=== PATIENT | male | born 1950 | race Caucasian/White ===

== ENCOUNTER 2020-12-10 16:01 | Emergency (ER) | payer MEDICARE, SELFPAY ==
[2020-12-10 16:05] VITALS: BP 122/68; PULSE 76; RESP 16; TEMP 37.5; O2SAT 97
--- NOTE | 2020-12-10 16:25 | ED.GENADUL_ITS ---
Discharge Plan Disposition Patient Disposition: HOME Condition: Stable Discharge Details Clinical Impression: Tick bite of back Primary Care Provider: Salvador Jarrett ED Provider: Selene Paz Home Meds and New Rx's Prescriptions: Continued lisinopril 10 MG tablet 1 tab PO DAILY RF: 0 naproxen 500 MG tablet 500 mg PO BID RF: 0 glipizide 10 MG tablet 20 mg PO BID RF: 0 omeprazole 20 MG capsule,delayed release(DR/EC) 20 mg PO HS RF: 0 simvastatin 80 MG tablet 0.5 tab PO HS RF: 0 No Action trazodone 150 MG tablet 150 mg PO HS RF: 0 metformin 1,000 MG tablet extended release 24hr 1,000 mg PO BID RF: 0 terazosin 5 MG capsule 5 mg PO HS RF: 0 fexofenadine 60 MG tablet 60 mg PO DAILY RF: 0 cephalexin 500 MG capsule 500 mg PO Q6H Qty: 16 RF: 0 Discharge Instructions Instructions: Tick Bite (ED) Additional Instructions: Follow up with primary care provider in 3-5 days if needed, please return or be seen for additional antibiotic treatment if nausea, headaches, body aches, wors ening rash or any concerns.. Return to ED sooner if any worsening or concerns. Increase oral fluids. Please take Tylenol or Ibuprofen with food every 4-6 hours as needed for pain and swelling. You were given doxycycline 200 mg here in the department which is a antibiotic and preventative for Lyme disease. Referrals: Salvador Jarrett [Primary Care Provider] - Discharge Data Discharge Date/Time-TO BE ENTERED AT DEPARTURE: 12/10/20 17:03 Medical Decision Making 62-year-old male with a past medical history of type 2 diabetes, hypercholesterol, presents to the ER with chief complaint of tick bite. Patient pulled and engorged tick off his left upper back today. He reports that tick may have been on him since Thursday. Does have red raised area where the tick was attached bleeding is controlled upon arrival. No other complaints or associated symptoms at this time. We will give him 200 mg doxycycline p.o. and perform wound care. Discuss strict return instructions or follow-up with PCP if additional symptoms occur, verbalized understanding. Wound care performed and patient given 200 mg doxycycline p.o. here in department. Instructed on strict follow-up if additional symptoms occur. Patient did bring take in with him however it is engorged and difficult to identify. This suspected that this is a dog tick however, we will treat empirically with 200 mg doxycycline. Tick was disposed of by staff training and development manager. Discussed strict return instructions and when to follow-up patient verbalized understanding. This text was generated using Hive7ation system, please disregard any oddities of phrase or misspellings. HPI General Mode of arrival: ambulatory . Date/Time Provider Initiated Documentation: 12/10/20 16:24 . Limitations to Documentation: no limitations . Information obtained by: patient . HPI Narrative: 62-year-old male with a past medical history of type 2 diabetes, hypercholesterol, presents to the ER with chief complaint of tick bite. Patient pulled and engorged tick off his left upper back today. He reports that tick may have been on him since Thursday. Does have red raised area where the tick was attached bleeding is controlled upon arrival. No other complaints or associated symptoms at this time. We will give him 200 mg doxycycline p.o. and perform wound care. Discuss strict return instructions or follow-up with PCP if additional symptoms occur, verbalized understanding. Related Data Home Medications Medication Instructions Recorded Confirmed metformin 1,000 mg PO BID 08/10/12 09/07/14 omeprazole 20 mg PO HS 08/10/12 09/07/14 simvastatin 0.5 tab PO HS 08/10/12 12/10/20 terazosin 5 mg PO HS 08/10/12 09/07/14 fexofenadine 60 mg PO DAILY 05/25/13 09/07/14 lisinopril 1 tab PO DAILY tab-cap 05/31/13 09/07/14 naproxen 500 mg PO BID tab-cap 05/31/13 09/07/14 glipizide 20 mg PO BID tab-cap 01/14/16 trazodone 150 mg PO HS tab-cap 01/14/16 12/10/20 cephalexin 500 mg PO Q6H #16 cap 05/05/17 Previous Rx's Medication Instructions Recorded cephalexin 500 mg PO Q6H #16 cap 05/05/17 Allergies Allergy/AdvReac Type Severity Reaction Status Date / Time No Known Allergies Allergy Unverified 12/10/20 16:10 General Stated Complaint: RashLesion ESTHER: 4 Review of Systems All systems reviewed & are unremarkable except as noted in HPI and below Integumentary/Breasts Skin/Breast: Reports as per HPI, Reports rash (Slightly raised erythemic area measuring approximately half centimeter) and Reports wounds (Tick bite left upper back) [facility] Social History Smoking/Tobacco Use Status: Former Tobacco Use Smoking risk assessment performed?: Yes Alcohol Intake: former Drug use: Never Do you feel safe at home: Yes Do you feel safe in your relationship?: Yes Exam Const General: cooperative, healthy appearing, comfortable, well developed and well groomed Nutritional Appearance: average body habitus Orientation: alert, awake and oriented x3 Skin General skin exam: elasticity normal and turgor normal Trauma: puncture (Left upper back tick bite with surrounding red raised area) Course Vital Signs Vital signs: Vital Signs Temperature 37.5 C 12/10/20 16:05 Pulse 76 12/10/20 16:05 Respiratory Rate 16 12/10/20 16:05 Blood Pressure 122/68 12/10/20 16:05 Pulse Oximetry 97 12/10/20 16:05 Temperature 37.5 C 12/10/20 16:05 Temperature Source Tympanic 12/10/20 16:05 Pulse 76 12/10/20 16:05 Respiratory Rate 16 12/10/20 16:05 Respiratory Effort 12/10/20 16:12 Blood Pressure 122/68 12/10/20 16:05 Blood Pressure Position Sitting 12/10/20 16:05 Pulse Oximetry 97 12/10/20 16:05 Oxygen Delivery Method Room Air 12/10/20 16:05 Oxygen Flow Rate 0 12/10/20 16:05 Pain Level 0 12/10/20 16:05
[2020-12-10] MEDS: Doxycycline Hyclate 100 MG CAP 200 MG PO (16:42)
[2020-12-10 16:49] VITALS: BP 122/68; PULSE 76; RESP 16; TEMP 37.5; O2SAT 97
== END 2020-12-10 17:03 | disposition home or self-care (01) ==
PROVIDERS: Emergency Provider Registered Nurse Emergency; PCP Family Medicine
DX: S20.462A Insect bite (nonvenomous) of left back wall of thorax, initial encounter (principal); W57.XXXA Bitten or stung by nonvenomous insect and other nonvenomous arthropods, initial encounter
CPT/HCPCS: 99283; 99282

== ENCOUNTER 2021-01-23 14:38 | Emergency (ER) | payer MEDICARE, SELFPAY ==
--- NOTE | 2021-01-23 15:15 | DI.RAD_ITS ---
Exam(s) XR HAND LT COMPLETE EXAM: XR HAND LT COMPLETE CLINICAL HISTORY: Foreign body (wood) dorsal hand. TECHNIQUE: 2D digital imaging was performed. COMPARISON: No exams were available for comparison FINDINGS: No evidence of acute fracture nor dislocation. No radiopaque foreign body. No osseous lesions nor e rosions. IMPRESSION: DATA REPOSITORY: RADIATION DOSE DELIVERED:
--- NOTE | 2021-01-23 15:27 | ED.GENADUL_ITS ---
Discharge Plan Disposition Patient Disposition: HOME Condition: Stable Discharge Details Clinical Impression: Foreign body of hand, left, superficial, Hx of retained foreign body fully removed Primary Care Provider: Mary Ann Cortez ED Provider: Selene Paz Home Meds and New Rx's Prescriptions: No Action fexofenadine [Janny Allergy] 60 mg tablet 60 mg PO BID RF: 0 trazodone 150 MG tablet 150 mg PO HS RF: 0 simvastatin 80 MG tablet 0.5 tab PO HS RF: 0 Discharge Instructions Instructions: Puncture Wound (ED) Additional Instructions: A wood splinter was removed from the left hand. At this time it appears that it is fully intact upon removal. The numbing medicine will wear off in approximately 1 or 2 hours. Please take Tylenol or ibuprofen for any pain. Clean and dry. You may keep it covered when working outside. Please be seen by your PCP or return sooner for any signs of infection including increased redness, red streaks, drainage, worsening pain or signs of infection. Referrals: Mary Ann Cortez MD [Primary Care Provider] - Medical Decision Making 70-year-old male presents to the ER with chief complaint of foreign body piece of wood to the dorsum of his left hand which occurred just prior to arrival. Patient states that he was cutting some wood invading his hand on a piece of wood and noticed a large splinter stuck in the dorsum of his left hand. Does appear to be mostly superficial. Tenderness with palpation. No active bleeding at this time. Full range of motion of hand and wrist. Last tetanus was 2017. EXAM: XR HAND LT COMPLETE CLINICAL HISTORY: Foreign body (wood) dorsal hand. TECHNIQUE: 2D digital imaging was performed. COMPARISON: No exams were available for comparison FINDINGS: No evidence of acute fracture nor dislocation. No radiopaque foreign body. No osseous lesions nor erosions. Foreign body approximately 1 cm wood splinter removed as noted in procedure note above. Foreign body appeared intact. No further palpable foreign body appreciated. Patient did complain of slight light-headedness during procedure but overall, tolerated well. Discussed home care and strict return instructions, verbalized understanding. Dressing applied and pt discharged to home. HPI General Mode of arrival: ambulatory . Date/Time Provider Initiated Documentation: 01/23/21 14:46 . Limitations to Documentation: no limitations . Information obtained by: patient . HPI Narrative: 70-year-old male presents to the ER with chief complaint of foreign body piece of wood to the dorsum of his left hand which occurred just prior to arrival. Patient states that he was cutting some wood invading his hand on a piece of wood and noticed a large splinter stuck in the dorsum of his left hand. Does appear to be mostly superficial. Tenderness with palpation. No active bleeding at this time. Full range of motion of hand and wrist. Last tetanus was 2017. Related Data Home Medications Medication Instructions Recorded Confirmed simvastatin 0.5 tab PO HS 08/10/12 01/23/21 trazodone 150 mg PO HS tab-cap 01/14/16 01/23/21 fexofenadine 60 mg tablet 60 mg PO BID 12/26/20 01/23/21 Allergies Allergy/AdvReac Type Severity Reaction Status Date / Time doxycycline AdvReac Intermediate nausea Verified 01/23/21 15:49 General ESTHER: 4 Review of Systems All systems reviewed & are unremarkable except as noted in HPI and below Integumentary/Breasts Skin/Breast: Reports wounds (Left hand) PFSH Social History Smoking/Tobacco Use Status: Former Tobacco Use Smoking risk assessment performed?: Yes Alcohol Intake: former Drug use: Never Do you feel safe at home: Yes Do you feel safe in your relationship?: Yes Exam Extrem Hand/finger images: 1. Puncture wound, palpable foreign body. Bleeding controlled. Procedures Foreign Body Removal Time Out Performed: no Site: left and hand Description of foreign body: other (Wood splinter 1 cm) Sedation/Analgesia: none Technique: manual removal and incision made to facilitate removal Confirmed by:: direct visualization, patient report and palpation Complications: pain Post-procedure exam: awake, alert, normal BP, normal HR and normal O2 sat Neurovascular: normal distal pulse, normal capillary fill, distal light touch sensation intact and distal motor function normal
[2021-01-23 15:45] VITALS: BP 144/70; PULSE 80; RESP 16; TEMP 36.2; O2SAT 94
[2021-01-23] MEDS: Lidocaine/Epinephri/Tetracaine Topical Gel 3 ML TP (16:06)
--- NOTE | 2021-01-23 16:57 | DI.VRAD_ITS ---
PROCEDURE INFORMATION: Exam: XR Left Hand Exam date and time: 01/23/2021 3:27 PM Age: 70 years old Clinical indication: Injury or trauma; Other: Foreign body; Wound; Hand; Left TECHNIQUE: Imaging protocol: XR Left hand. Views: 3 or more views. COMPARISON: CR LEFT MIDDLE FINGER 05/05/2017 12:55 PM FINDINGS: Bones/joints: Hypertrophic degenerative changes are noted involving the 1st IP joint. No acute fracture seen. Soft tissues: Normal. IMPRESSION: Mild DJD. No acute fracture or retained foreign body is noted. Dictated and Authenticated by: Douglas Deutsch MD. Ordering:PRAVIN Morton MD
--- NOTE | 2021-01-23 17:04 | NUR.NOTE ---
patient wound care completed by [facility] tech. Area dressed per provider order. patient home with . Nursing Note:
== END 2021-01-23 17:06 | disposition home or self-care (01) ==
PROVIDERS: Emergency Provider Registered Nurse Emergency; PCP Family Medicine
DX: S60.552A Superficial foreign body of left hand, initial encounter (principal); W45.8XXA Other foreign body or object entering through skin, initial encounter
CPT/HCPCS: 10120; 99283; 73130; 99281

== ENCOUNTER 2024-02-27 16:21 | Emergency (ER) | payer MEDICARE, SELFPAY ==
[2024-02-27 16:23] VITALS: BP 126/71; PULSE 79; RESP 20; TEMP 36.4; O2SAT 98
[2024-02-27] MEDS: Lidocaine 1% Pres-Free 30 ML VIAL IJ (18:12)
--- NOTE | 2024-02-27 20:09 | ED.GENADUL_ITS ---
Discharge Plan Disposition Patient Disposition: Home Condition: Stable Discharge Details Clinical Impression: Finger laceration Primary Care Provider: Unknown,Unknown ED Provider: Pennie Ramos Home Meds and New Rx's Prescriptions: Continued fexofenadine [Janny Allergy] 60 mg tablet 60 mg PO BID trazodone 150 MG tablet 150 mg PO HS simvastatin 80 MG tablet 0.5 tab PO HS magnesium Tablet PO DAILY omega-3 fatty acids Capsule 500 mg PO DAILY empagliflozin [Jardiance] PO DAILY Patient Comments: does not know dose Discharge Instructions Instructions: Common Finger Injuries (DC), Laceration Repair With Stitches ED Additional Instructions: Return in 12 days to have sutures removed, you will need sensation and strength rechecked at that visit, you have [address] Keep dry for 24 hours and after that you may wash with soap and water but do not submerge in water until sutures are removed Refrain from repetitive use or motion of this finger as it will take it will delay healing Keep covered for the next 3 days and after that I recommend keeping it covered during the day and allowing it to air dry at night Apply bacitracin twice daily Return for spreading redness, fever, worsening pain Discharge Data Discharge Date/Time-TO BE ENTERED AT DEPARTURE: 02/27/24 18:14 HPI General Date/Time Provider Initiated Documentation: 02/27/24 16:44 . HPI Narrative: This 73-year-old male presents with laceration to his right third digit just prior to arrival on a can. Denies strength change but does report some mild sensation changes distally. Tetanus in 2017 per patient. Denies history of coagulopathy. Related Data Home Medications ?Medication ?Instructions ?Recorded ?Confirmed simvastatin 80 mg tablet 0.5 tab PO HS 08/10/12 02/27/24 trazodone 150 mg tablet 150 mg PO HS 01/14/16 02/27/24 fexofenadine 60 mg tablet (Janny 60 mg PO BID 12/26/20 02/27/24 Allergy) empagliflozin PO DAILY 02/27/24 magnesium tab PO DAILY 02/27/24 omega-3 fatty acids 500 mg PO DAILY 02/27/24 02/27/24 Allergies Allergy/AdvReac Type Severity Reaction Status Date / Time doxycycline AdvReac Intermediate nausea Verified 02/27/24 17:21 General Stated Complaint: Laceration ESTHER: 4 Exam Narrative Exam Narrative: Alert and oriented 73-year-old male in no acute distress, laceration noted to middle phalanx on right hand, into adipose tissue, range of motion flexion and extension intact, mildly diminished sensation to the radial aspect of the distal third digit, strength intact Course Vital Signs Vital signs: Vital Signs Temperature 36.4 C 02/27/24 16:23 Pulse 79 02/27/24 16:23 Respiratory Rate 20 02/27/24 16:23 Blood Pressure 126/71 02/27/24 16:23 Pulse Oximetry 98 02/27/24 16:23 Temperature 36.4 C 02/27/24 16:23 Pulse 79 02/27/24 16:23 Respiratory Rate 20 02/27/24 16:23 Respiratory Effort Normal 02/27/24 16:47 Blood Pressure 126/71 02/27/24 16:23 Blood Pressure Position Sitting 02/27/24 16:23 Pulse Oximetry 98 02/27/24 16:23 Oxygen Delivery Method Room Air 02/27/24 16:23 Oxygen Flow Rate 0 02/27/24 16:23 Pain Level 0 02/27/24 18:12 Procedures Laceration Laceration 1: Site: hand Side (If applicable): right Size (cm): 2 Description: linear Depth: simple, single layer Local anesthetic: Lidocaine 2% Amount of anesthesia used (mL): 5 Pre-repair: wound explored, irrigated extensively and deep structures intact Skin layer closed with: other Size (cm): 5-0 Number of sutures: 5 Technique: other (Vertical mattress) Medical Decision Making 73-year-old male in no acute distress with accidental laceration to right third digit. Patient tolerated suture placement with 5 vertical mattress sutures without incident. He does have some diminished sensation along the radial aspect of the third digit, this will need to be reassessed and sutures are removed in 12 days. Coagulation achieved. Tetanus up-to-date, dressing applied and return precautions reviewed. Quality:SDOH Health Related Social Needs: No Data to Display PFSH All Active Problems (Updated 02/27/24 @ 17:56 by KASSIDY Kong) Finger laceration (Acute) Hx of retained foreign body fully removed (Acute) Foreign body of hand, left, superficial (Acute) Tick bite of back (Acute) Social History Smoking/Tobacco Use Status: Former Tobacco Use Smoking risk assessment performed?: Yes Alcohol Intake: former Drug use: Never Do you feel safe at home: Yes Do you feel safe in your relationship?: Yes
== END 2024-02-27 18:14 | disposition home or self-care (01) ==
PROVIDERS: Emergency Provider Physician Assistant
DX: S61.212A Laceration without foreign body of right middle finger without damage to nail, initial encounter (principal); Z87.891 Personal history of nicotine dependence; W26.8XXA Contact with other sharp object(s), not elsewhere classified, initial encounter
CPT/HCPCS: 12001; 99283; J2003

== ENCOUNTER 2024-06-29 13:12 | Outpatient (CLI) | payer OTHER, SELFPAY ==
--- NOTE | 2024-06-29 13:45 | DI.RAD_ITS ---
Exam(s) XR HAND LT COMPLETE EXAM: XR HAND LT COMPLETE CLINICAL HISTORY: LT HAND PAIN, M79.642,[id number]. TECHNIQUE: 2D digital imaging was performed. Three views. COMPARISON: CR,XR XR HAND LT COMPLETE from 01/23/2021 FINDINGS: BONES: No acute fracture is present. No bony destructive lesion is seen. JOINTS: No dislocation present. Advanced degenerative changes are prominent spurring or again noted at the interphalangeal joint of the thumb. Degenerative changes are present to a lesser extent invo lving the interphalangeal joints of the fingers and 1st carpal metacarpal joint. SOFT TISSUE: Normal. IMPRESSION: Degenerative changes, greatest at the interphalangeal joint of the thumb. DATA REPOSITORY: RADIATION DOSE DELIVERED:
== END 2024-06-29 13:32 ==
LOC: DI 13:12
PROVIDERS: Visit Provider Nurse Practitioner
DX: M79.642 Pain in left hand (principal)
CPT/HCPCS: 73130

== ENCOUNTER 2024-08-16 10:07 | Emergency (ER) | payer MEDICARE, SELFPAY ==
[2024-08-16 10:11] VITALS: BP 143/80; PULSE 74; RESP 18; TEMP 36.6; O2SAT 98
--- NOTE | 2024-08-16 10:15 | DI.CT_ITS ---
Exam(s) CT TEMPORAL BONE W EXAM: CT TEMPORAL BONE W CLINICAL HISTORY: Right ear pain. TECHNIQUE: Imaging Protocol: Axial computed tomography images with coronal and sagittal reformatted images were created and reviewed. CONTRAST MATERIAL: Intravenous: Omnipaque 350 Contrast volume:100 contrast route:IV - COMPARISON: No exams were available for comparison FINDINGS: Right Temporal Bone: The cochlea, vestibule, vestibular and cochlear aqueduct are normal. The facial nerve canal is well m aintained. The semicircular canals are unremarkable. There is no evidence of dehiscence. The internal auditory canal is within normal limits. The scutum and tegmen are within normal limits. There is no evidence of otosclerosis.There is fluid seen in the middle ear surrounding the ossicles. There is no evidence of erosion of the ossicles. There is fluid seen in the right mastoid air cells. No destructive changes are seen in the oswald of the mastoid air cells. There is no evidence of an intracranial abscess. No subcutaneous mass or flu id collection is seen to suggest an abscess. The carotid canal and jugular foramen are within normal limits. The temporomandibular joint is unremarkable. Left Temporal Bone: The cochlea, vestibule, vestibular and cochlear aqueduct are normal. The facial nerve canal is well m aintained. The semicircular canals are unremarkable. There is no evidence of dehiscence. The interna l auditory canal is within normal limits. The scutum and tegmen are within normal limits. There is no evidence of otosclerosis. The external auditory canal and mastoid air cells are normal. The carotid canal and jugular foramen a re within normal limits. The temporomandibular joint is unremarkable. IMPRESSION: 1. Right otitis media. 2. Fluid in the right mastoid air cells. This may reflect a mastoiditis. No destructive changes or findings to suggest an intracranial or subcutaneous abscess are seen. RADIATION DOSE DELIVERED: 250.18mGy.cm Total DLP DATA REPOSITORY: All CT scans at this facility are submitted to the National Radiology Data Registry (NRDR) Dose Index Registry (DIR) with the [employer] (A[employer]). RADIATION OPTIMIZATION: All CT scans at this facility use at least one of these dose optimization te chniques: automated exposure control; mA and/or kV adjustment per patient size (includes targeted exa ms where dose is matched to clinical indication); or iterative reconstruction.
--- NOTE | 2024-08-16 10:29 | W.ED.GENAD ---
Discharge Plan Disposition Patient Disposition: Home Condition: Stable Discharge Details Clinical Impression: Right acute suppurative otitis media Primary Care Provider: Unknown,Unknown ED Provider: Selene Paz Home Meds and New Rx's Prescriptions: New ciprofloxacin-dexamethasone 0.3-0.1 % drops,suspension 4 drp otic (ear) BID 7 Days Qty: 7.5 0RF Rx Instructions: Please place 4 drops into the ear twice daily for the next 7 days Discontinued ofloxacin 0.3 % drops 10 drp otic (ear) DAILY 7 Days Qty: 5 0RF No Action fexofenadine [Janny Allergy] 60 mg tablet 60 mg PO BID amoxicillin-pot clavulanate 875-125 mg tablet 1 tab PO Q12H Qty: 14 0RF trazodone 150 MG tablet 150 mg PO HS simvastatin 80 MG tablet 0.5 tab PO HS magnesium Tablet 1 tab PO DAILY omega-3 fatty acids Capsule 500 mg PO DAILY empagliflozin [Jardiance] 100 mg PO DAILY Patient Comments: does not know dose Discharge Instructions Instructions: Ear Infection ED Additional Instructions: Continue taking the antibiotic as previously prescribed. I have changed your eardrops to ciprofloxacin. Please stop the ofloxacin and start the ciprofloxacin. I did speak with Dr. Sanchez who is our ear nose and throat doctor. I did discuss his CT results with him. He recommends to continue with the antibiotic already previously prescribed. Please return to the ER for any worsening severe pain, fever chills vomiting or concerns. Please follow-up with ear nose and throat within the next 1 to 2 weeks. Thank you for allowing us to care for you today. Referrals: Alexey Sanchez MD [ [facility] STAFF PHYSICIAN] - 1 week HPI General Mode of arrival: ambulatory. Date/Time Provider Initiated Documentation: 08/16/24 10:09. Limitations to Documentation: no limitations. Information obtained by: patient, RN notes reviewed and old records reviewed. HPI Narrative: 73-year-old male presents to the ER with a chief complaint of right ear pain and bloody discharge for the last 3 days. Patient was seen at urgent care on and was diagnosed with otitis media was placed on Augmentin and ofloxacin drops. He reports that he has had bloody discharge every night over the last 3 nights. It stopped yesterday. He does wear hearing aids. He reports that he is unable to hear out of his right ear and describes a static sound or tinnitus. He also has some posterior ear soreness. No obvious erythema or swelling noted to his mastoid bone. He also endorses chills for the last couple of days. Related Data Home Medications ?Medication ?Instructions ?Recorded ?Confirmed simvastatin 80 mg tablet 0.5 tab PO HS 08/10/12 08/16/24 trazodone 150 mg tablet 150 mg PO HS 01/14/16 08/16/24 fexofenadine 60 mg tablet (Janny 60 mg PO BID 12/26/20 08/16/24 Allergy) empagliflozin 100 mg PO DAILY 02/27/24 08/16/24 magnesium 1 tab PO DAILY 02/27/24 08/16/24 omega-3 fatty acids 500 mg PO DAILY 02/27/24 08/16/24 amoxicillin 875 mg-potassium 1 tab PO Q12H #14 tabs 08/11/24 08/16/24 clavulanate 125 mg tablet ciprofloxacin 0.3 %-dexamethasone 4 drp otic (ear) BID Otitis 08/16/24 0.1 % ear drops,suspension externa 7 days #7.5 mL Previous Rx's ?Medication ?Instructions ?Recorded amoxicillin 875 mg-potassium 1 tab PO Q12H #14 tabs 08/11/24 clavulanate 125 mg tablet ciprofloxacin 0.3 %-dexamethasone 4 drp otic (ear) BID Otitis 08/16/24 0.1 % ear drops,suspension externa 7 days #7.5 mL Allergies Allergy/AdvReac Type Severity Reaction Status Date / Time doxycycline AdvReac Intermediate nausea Verified 08/16/24 10:15 General Stated Complaint: EarProblem ESTHER: 4 Review of Systems All systems reviewed & are unremarkable except as noted in HPI and below Constitutional Constitutional: Reports chills ENT Ears, Nose, Mouth, and Throat: Reports as per HPI, Reports ear discharge, Reports otalgia and Reports tinnitus Exam Const General: cooperative and healthy appearing Nutritional Appearance: average body habitus Orientation: alert, awake and oriented x3 HENMT Head: normal to inspection Ears: TM normal on the left, EAC abnormal erythema and edema (Dried blood noted in the EAC) on the right, hearing grossly impaired (Generalized Hard of hearing) on the right, mastoid abnormal (Tenderness with palpation on the right), TM abnormal bulging on the right, erythematous on the right, with loss of landmarks on the right and other and other General nose exam: external nose normal Face and sinus: normal facial exam Resp Effort & Inspection: normal respiratory effort and able to speak in complete sentences Auscultation: clear to auscultation bilaterally Cardio Rate: regular rate Rhythm: regular rhythm Heart Sounds: S1 normal and S2 normal Course Vital Signs Vital signs: Vital Signs Temperature 36.6 C 08/16/24 10:11 Pulse 74 08/16/24 10:11 Respiratory Rate 18 08/16/24 10:11 Blood Pressure 143/80 H 08/16/24 10:11 Pulse Oximetry 98 08/16/24 10:11 Temperature 36.6 C 08/16/24 10:11 Temperature Source Oral 08/16/24 10:11 Pulse 74 08/16/24 10:11 Respiratory Rate 18 08/16/24 10:11 Blood Pressure 143/80 H 08/16/24 10:11 Blood Pressure Position Sitting 08/16/24 10:11 Pulse Oximetry 98 08/16/24 10:11 Oxygen Delivery Method Room Air 08/16/24 10:11 Oxygen Flow Rate 0 08/16/24 10:11 Pain Level 0 08/16/24 10:11 Medical Decision Making 73-year-old male presents to the ER with a chief complaint of right ear pain and bloody discharge for the last 3 days. Patient was seen at urgent care on and was diagnosed with otitis media was placed on Augmentin and ofloxacin drops. He reports that he has had bloody discharge every night over the last 3 nights. It stopped yesterday. He does wear hearing aids. He reports that he is unable to hear out of his right ear and describes a static sound or tinnitus. He also has some posterior ear soreness. No obvious erythema or swelling noted to his mastoid bone. He also endorses chills for the last couple of days. CBC BMP IV CT temporal bone with contrast ordered to rule out mastoiditis. 1219: Spoke with Dr. Sanchez regarding patient case and details he recommends doing a tuning fork evaluation, he does also recommend if there is a sensorineural renal hearing loss versus a conductive loss to think about possible shingles infection and starting on a antiviral such as acyclovir and steroids. Otherwise the Augmentin and antibiotic regimen that he is on currently will treat the infection. He does not suspect coalescent fluid collection and does not recommend any IV antibiotics or admission at this time. patient has decreased hearing with tuning fork to right ear, he also mentions to me vertigo. I will change his eardrops to Cipro HC that has the hydrocortisone in it. I did encourage him to continue the Augmentin and make a follow-up appointment with Dr. Sanchez. He verbalizes understanding. I also discussed strict return instructions. This text was generated using [employer] system, please disregard any oddities of phrase or misspellings. Medical Records Medical records reviewed: Yes I reviewed the patient's medical records. Lab Data Lab results reviewed: Yes I reviewed the patient's lab results. Labs: Laboratory Tests Range/Units 08/16/24 10:49 WBC (4.4-10.8) 10^3/uL 9.24 RBC (4.36-5.78) 10^6/uL 4.74 Hgb (13.5-17.5) g/dL 14.4 Hct (40.0-50.0) % 42.9 MCV (80-95) fL 91 MCH (27.0-33.0) pg 30.4 MCHC (32.0-36.0) % 33.6 RDW (11.8-14.1) % 11.5 L Plt Count (130-400) 10^3/uL 263 MPV (8.0-11.0) fL 8.3 Immature Gran % % 0.4 Neutrophils % % 46.9 Lymphocytes % % 43.1 Monocytes % % 7.9 Eosinophils % % 1.3 Basophils % % 0.4 Nucleated RBC % (0.0-0.3) % 0.0 Absolute Neutrophils (1.2-6.7) 10^3/uL 4.33 Absolute Lymphocytes (1.2-3.4) 10^3/uL 3.98 H Absolute Monocytes (0.1-0.8) 10^3/uL 0.73 Absolute Eosinophils (0.0-0.7) 10^3/uL 0.12 Absolute Basophils (0.0-0.2) 10^3/uL 0.04 Sodium (136-145) mmol/L 138 Potassium (3.5-5.1) mmol/L 4.5 Chloride (98-107) mmol/L 99 Carbon Dioxide (21.0-32.0) mmol/L 32.5 H Anion Gap (3-11) mmol/L 6.5 BUN (7-18) mg/dL 21 H Creatinine (0.70-1.30) mg/dL 0.8 Est GFR (CKD-EPI 2020) (mL/min/1.73m2) 94.62 Glucose (74-106) mg/dL 107 H Calcium (8.5-10.1) mg/dL 9.7 Quality:[facility] Health Related Social Needs: No Data to Display PFSH All Active Problems (Updated 08/16/24 @ 12:29 by Selene Paz NP) Right acute suppurative otitis media (Acute) Hx of retained foreign body fully removed (Acute) Foreign body of hand, left, superficial (Acute) Tick bite of back (Acute) Social History Smoking/Tobacco Use Status: Former Tobacco Use Smoking risk assessment performed?: Yes Alcohol Intake: former Drug use: Never Substance use type: does not use Do you feel safe at home: Yes Do you feel safe in your relationship?: Yes
[2024-08-16 10:59] LABS: Abs Immature Grans 0.04 10^3/uL (0.0-0.06); Absolute Basophil Count 0.04 10^3/uL (0.0-0.2); Absolute Eosinophil Count 0.12 10^3/uL (0.0-0.7); Absolute Lymphocyte Count 3.98 10^3/uL (1.2-3.4); Absolute Monocyte Count 0.73 10^3/uL (0.1-0.8); Absolute Neutrophil Count 4.33 10^3/uL (1.2-6.7); Basophils % 0.4 %; Eosinophils % 1.3 %; HCT 42.9 % (40.0-50.0); HGB 14.4 g/dL (13.5-17.5); Immature Grans % 0.4 %; Lymphocytes % 43.1 %; MCH 30.4 pg (27.0-33.0); MCHC 33.6 % (32.0-36.0); MCV 91 fL (80-95); MPV 8.3 fL (8.0-11.0); Monocytes % 7.9 %; Neutrophils % 46.9 %; Platelet Count 263 10^3/uL (130-400); RBC 4.74 10^6/uL (4.36-5.78); RDW 11.5 % (11.8-14.1); RDW-SD 38.4 fL; WBC 9.24 10^3/uL (4.4-10.8)
[2024-08-16 11:11] LABS: Anion Gap 6.5 mmol/L (3-11); BUN 21 mg/dL (7-18); CO2 32.5 mmol/L (21.0-32.0); CREATININE 0.8 mg/dL (0.70-1.30); Calcium 9.7 mg/dL (8.5-10.1); Chloride 99 mmol/L (98-107); Estimated GFR 94.62 (mL/min/1.73m2); Glucose 107 mg/dL (74-106); Potassium 4.5 mmol/L (3.5-5.1); Sodium 138 mmol/L (136-145)
[2024-08-16] MEDS: Normal Saline - Diluent 50 ML VIAL IJ (11:30)
[2024-08-16] MEDS: Omnipaque 350 MG/ML 100 ML BTL IJ (11:31)
[2024-08-16 12:46] VITALS: BP 140/82; PULSE 72; RESP 18; O2SAT 98
== END 2024-08-16 12:46 | disposition home or self-care (01) ==
PROVIDERS: Emergency Provider Registered Nurse Emergency
DX: H66.001 Acute suppurative otitis media without spontaneous rupture of ear drum, right ear (principal)
CPT/HCPCS: 80048; 99285; 70481; 85025; 99284; J3490

== ENCOUNTER 2024-08-25 17:57 | Emergency (ER) | payer OTHER, SELFPAY ==
--- NOTE | 2024-08-25 17:45 | RT.EKG_ITS ---
APPROVED REPORT Exam: Resting ECG Reason for Exam: Chest Pain Patient Location: E HR:91 bpm ECG Measurements Heart Rate 91 AXIS RI 178 P 34 QRSd 97 QRS 7 QT 347 T 52 QTc 427 Conclusion Sinus rhythm...normal P axis, V-rate 60- 99 Probable left atrial enlargement...P >50mS, <-0.10mV V1 Physician: no stemi
[2024-08-25 18:01] VITALS: BP 103/62; PULSE 93; RESP 19; TEMP 36.8; O2SAT 98
[2024-08-25] MEDS: Normal Saline 1,000 ML 1000 ML IV (19:09)
[2024-08-25] MEDS: ACETAMINOPHEN 500 MG/50 ML BAG 200 MG IVPB (19:09)
[2024-08-25 19:18] LABS: Abs Immature Grans 0.08 10^3/uL (0.0-0.06); Absolute Basophil Count 0.03 10^3/uL (0.0-0.2); Absolute Eosinophil Count 0.06 10^3/uL (0.0-0.7); Absolute Lymphocyte Count 2.31 10^3/uL (1.2-3.4); Absolute Neutrophil Count 11.15 10^3/uL (1.2-6.7); Basophils % 0.2 %; Eosinophils % 0.4 %; HGB 13.7 g/dL (13.5-17.5); Immature Grans % 0.5 %; Lymphocytes % 15.4 %; MCH 30.4 pg (27.0-33.0); MCHC 34.3 % (32.0-36.0); MCV 89 fL (80-95); MPV 8.2 fL (8.0-11.0); Monocytes % 9.3 %; Neutrophils % 74.2 %; Platelet Count 263 10^3/uL (130-400); RDW 11.5 % (11.8-14.1); WBC 15.03 10^3/uL (4.4-10.8)
--- NOTE | 2024-08-25 19:20 | DI.RAD_ITS ---
Exam(s) XR CHEST 2V PA LATERAL EXAM: XR CHEST 2V PA LATERAL CLINICAL HISTORY: shortness of breath TECHNIQUE: 2D digital imaging was performed. Two views. COMPARISON: CR ABD FLAT UPRIGHT PA CHEST from 06/25/2009 FINDINGS: HEART: Normal size. Aorta: Not dilated. PULMONARY VASCULATURE: Normal. MEDIASTINUM: Unremarkable. LUNGS: Clear. PLEURAL SPACE: No pleural effusion or pneumothorax. BONE:Unremarkable for age. SOFT TISSUES: Unremarkable. IMPRESSION: No acute abnormality. DATA REPOSITORY: RADIATION DOSE DELIVERED:
[2024-08-25 19:35] LABS: Anion Gap 8.2 mmol/L (3-11); BUN 12 mg/dL (7-18); CO2 28.8 mmol/L (21.0-32.0); CREATININE 0.8 mg/dL (0.70-1.30); Calcium 9.5 mg/dL (8.5-10.1); Chloride 96 mmol/L (98-107); Estimated GFR 94.62 (mL/min/1.73m2); Glucose 154 mg/dL (74-106); Potassium 3.7 mmol/L (3.5-5.1); Sodium 133 mmol/L (136-145)
[2024-08-25 19:40] LABS: Troponin I < 4 ng/L (<or=76)
--- NOTE | 2024-08-25 19:48 | DI.VRAD_ITS ---
PROCEDURE INFORMATION: Exam: XR Chest Exam date and time: 08/25/2024 7:18 PM Age: 73 years old Clinical indication: Shortness of breath; SOB TECHNIQUE: Imaging protocol: Radiologic exam of the chest. Views: 2 views. COMPARISON: No relevant prior studies available. FINDINGS: Lungs: Unremarkable. No consolidation. Pleural spaces: Unremarkable. No pleural effusion. No pneumothorax. Heart/Mediastinum: Unremarkable. No cardiomegaly. Bones/joints: Moderate degenerative changes of the spine and shoulders. No vertebral body compression. No acute fracture. IMPRESSION: No acute disease Dictated and Authenticated by: Hugo Silva MD. Orderin Richard Casper MD
[2024-08-25 20:44] LABS: Troponin I < 4 ng/L (<or=76)
[2024-08-25 20:58] VITALS: BP 112/88; PULSE 78; RESP 19; TEMP 36.8; O2SAT 95
[2024-08-25] MEDS: Amox. 875/Clav. 125, 2 TABS/BTL 1 TAB PO (21:09)
[2024-08-25] MEDS: MORPHine IR 15 MG TAB, 4 TABS/BTL PO (21:09)
--- NOTE | 2024-08-25 22:22 | W.ED.GENAD ---
Discharge Plan Disposition Patient Disposition: Home Condition: Stable Discharge Details Clinical Impression: Right acute suppurative otitis media, Perforation of tympanic membrane Primary Care Provider: Mitzi Morataya ED Provider: Pennie Ramos Home Meds and New Rx's Prescriptions: New amoxicillin-pot clavulanate 875-125 mg tablet 1 tab PO BID Qty: 14 0RF Morphine Ir, 4 Tabs/Btl [Msir, 4 Tabs/Btl] 15 mg PO DISPENSE Qty: 4 0RF Continued fexofenadine [Janny Allergy] 60 mg tablet 60 mg PO BID trazodone 150 MG tablet 150 mg PO HS simvastatin 80 MG tablet 0.5 tab PO HS magnesium Tablet 1 tab PO DAILY omega-3 fatty acids Capsule 500 mg PO DAILY empagliflozin [Jardiance] 100 mg PO DAILY Patient Comments: does not know dose Discharge Instructions Instructions: Ear Infection ED Additional Instructions: take morphine sparingly, this is addictive take antibiotic as prescribed follow-up with ENT tomorrow return with fever, worsening pain, or should new concerns arise tylenol as needed for pain follow-up with pcp at your appt tomorrow Referrals: Mitzi Morataya [Primary Care Provider] - [facility] General Date/Time Provider Initiated Documentation: 08/25/24 18:31. HPI Narrative: The patient is a 73-year-old male who presents with a history of hyperlipidemia and diabetes, reporting right ear pain and headache. He was diagnosed with otitis media and otitis externa several days prior to this visit. He reports a partial tympanic membrane rupture and worsening pain. He was prescribed Ciprodex drops for the otitis externa and underwent a CT head scan and laboratory tests. Related Data Home Medications ?Medication ?Instructions ?Recorded ?Confirmed simvastatin 80 mg tablet 0.5 tab PO HS 08/10/12 08/25/24 trazodone 150 mg tablet 150 mg PO HS 01/14/16 08/25/24 fexofenadine 60 mg tablet (Janny 60 mg PO BID 12/26/20 08/25/24 Allergy) empagliflozin 100 mg PO DAILY 02/27/24 08/25/24 magnesium 1 tab PO DAILY 02/27/24 08/25/24 omega-3 fatty acids 500 mg PO DAILY 02/27/24 08/25/24 MORPHine IR, 4 tabs/btl [MSIR, 4 15 mg PO DISPENSE #4 mg 08/25/24 tabs/btl] amoxicillin 875 mg-potassium 1 tab PO BID #14 tabs 08/25/24 clavulanate 125 mg tablet Previous Rx's ?Medication ?Instructions ?Recorded MORPHine IR, 4 tabs/btl [MSIR, 4 15 mg PO DISPENSE #4 mg 08/25/24 tabs/btl] amoxicillin 875 mg-potassium 1 tab PO BID #14 tabs 08/25/24 clavulanate 125 mg tablet Allergies Allergy/AdvReac Type Severity Reaction Status Date / Time doxycycline AdvReac Intermediate nausea Verified 08/25/24 18:11 General Stated Complaint: Chest Pain ESTHER: 3 Exam Narrative Exam Narrative: The patient is in no acute distress. Pupils are equal, round, and reactive to light and accommodation. The oropharynx is patent. Uvula is midline. No signs of meningismus in the neck. Lungs were auscultated. Cranial nerves II through XII are intact. Vital Signs Vitals are stable. Course Vital Signs Vital signs: Vital Signs Temperature 36.8 C 08/25/24 18:01 Pulse 93 H 08/25/24 18:01 Respiratory Rate 19 08/25/24 18:01 Blood Pressure 103/62 08/25/24 18:01 Pulse Oximetry 98 08/25/24 18:01 Temperature 36.8 C 08/25/24 20:58 Temperature Source Oral 08/25/24 18:01 Pulse 78 08/25/24 20:58 Respiratory Rate 19 08/25/24 20:58 Blood Pressure 112/88 08/25/24 20:58 Blood Pressure Position Sitting 08/25/24 18:01 Pulse Oximetry 95 08/25/24 20:58 Oxygen Delivery Method Room Air 08/25/24 18:01 Oxygen Flow Rate 0 08/25/24 18:01 Pain Level 3 08/25/24 20:58 Lab/Test Results Lab/Test Results: Laboratory Tests Range/Units 08/25/24 08/25/24 08/25/24 19:10 20:16 21:49 WBC (4.4-10.8) 10^3/uL 15.03 H RBC (4.36-5.78) 10^6/uL 4.50 Hgb (13.5-17.5) g/dL 13.7 Hct (40.0-50.0) % 40.0 MCV (80-95) fL 89 MCH (27.0-33.0) pg 30.4 MCHC (32.0-36.0) % 34.3 RDW (11.8-14.1) % 11.5 L Plt Count (130-400) 10^3/uL 263 MPV (8.0-11.0) fL 8.2 Immature Gran % % 0.5 Neutrophils % % 74.2 Lymphocytes % % 15.4 Monocytes % % 9.3 Eosinophils % % 0.4 Basophils % % 0.2 Nucleated RBC % (0.0-0.3) % 0.0 Absolute Neutrophils (1.2-6.7) 10^3/uL 11.15 H Absolute Lymphocytes (1.2-3.4) 10^3/uL 2.31 Absolute Monocytes (0.1-0.8) 10^3/uL 1.40 H Absolute Eosinophils (0.0-0.7) 10^3/uL 0.06 Absolute Basophils (0.0-0.2) 10^3/uL 0.03 Sodium (136-145) mmol/L 133 L Potassium (3.5-5.1) mmol/L 3.7 Chloride (98-107) mmol/L 96 L Carbon Dioxide (21.0-32.0) mmol/L 28.8 Anion Gap (3-11) mmol/L 8.2 BUN (7-18) mg/dL 12 Creatinine (0.70-1.30) mg/dL 0.8 Est GFR (CKD-EPI 2020) (mL/min/1.73m2) 94.62 Glucose (74-106) mg/dL 154 H Calcium (8.5-10.1) mg/dL 9.5 Troponin I (<or=76) ng/L < 4 < 4 Cancelled Medical Decision Making Laboratory Studies CBC shows leukocytosis increased from 9000 on last visit. Sodium 133, chloride 96, glucose 154. Imaging CT head shows evidence of right otitis media with fluid in the right mastoid cells without obvious abscess. Initial Assessment: 73-year-old male with history of hyperlipidemia and diabetes presents with right ear pain and headache. Diagnosed with otitis media and otitis externa several days prior, treated with Cipro drops. ED Course: - CT head shows evidence of right otitis media with fluid in right mastoid cells, no abscess. - Switch from Cipro HC drops to Augmentin due to partial tympanic membrane rupture and worsening pain. - CBC shows leukocytosis increased from 9000 on last visit. - Sodium 133, chloride 96, glucose 154. - Discharged home in stable condition with stable vitals. - Follow-up with ENT tomorrow. Final Assessment: Patient with right otitis media and partial tympanic membrane rupture, worsening pain. CT head shows fluid in right mastoid cells, no abscess. Switch to oral antibiotics. Discharged home in stable condition, follow-up with ENT. Clinical Impression: - Right otitis media with partial tympanic membrane rupture Disposition: - Discharge: Discharged home in stable condition. - Follow-Up: Follow-up with ENT at [place]. MDM Components Evaluation: - Number of Differential Diagnoses or Management Options: Right otitis media, partial tympanic membrane rupture. - Amount and Complexity of Data Reviewed: CT head, CBC, sodium, chloride, glucose. - Risk of Complication and Morbidity or Mortality: Risk of worsening infection and complications due to tympanic membrane rupture. Quality:SDOH Health Related Social Needs: No Data to Display PFSH All Active Problems (Updated 08/25/24 @ 20:50 by KASSIDY Kong) Perforation of tympanic membrane (Acute) Right acute suppurative otitis media (Acute) Hx of retained foreign body fully removed (Acute) Foreign body of hand, left, superficial (Acute) Tick bite of back (Acute) Social History Smoking/Tobacco Use Status: Never Smoking risk assessment performed?: Yes Alcohol Intake: former Drug use: Never Substance use type: does not use Do you feel safe at home: Yes Do you feel safe in your relationship?: Yes
== END 2024-08-25 21:13 | disposition home or self-care (01) ==
PROVIDERS: Emergency Provider Physician Assistant; PCP Nurse Practitioner
DX: H66.011 Acute suppurative otitis media with spontaneous rupture of ear drum, right ear (principal); E78.5 Hyperlipidemia, unspecified; E11.9 Type 2 diabetes mellitus without complications
CPT/HCPCS: 80048; 87426; 93005; 96361; 96365; 99285; 71046; 84484; 85025; 93010; 99284; J0131